=== PATIENT | female | born 1985 | race Caucasian/White ===

== ENCOUNTER 2021-08-11 19:58 | Emergency (ER) | payer OTHER ==
[2021-08-11 22:02] LABS: HEMOGLOBIN 15.8 gm/dl (12.3-15.3); RED BLOOD COUNT 4.7 M/UL (4.00-5.10); WHITE BLOOD COUNT 8.5 K/UL (4.5-11.0)
[2021-08-11 22:24] LABS: BUN/CREATININE RATIO 15 (0-10)
[2021-08-12] MEDS ORDERED: ZOFRAN ODT 4 MG4 MG PO (08:34)
== END 2021-08-12 13:45 | disposition home or self-care (01) ==
LOC: ER1 19:58
PROVIDERS: Emergency Medicine
DX: F25.0 Schizoaffective disorder, bipolar type (principal); R11.0 Nausea
CPT/HCPCS: 71045; 80053; 80178; 80307; 81001; 82550; 82553; 84484; 85025; 93005; 99285